=== PATIENT | female | born 1985 | race Caucasian/White ===

== ENCOUNTER 2017-04-13 10:30 | Inpatient (IN) | payer OTHER ==
[~2017-04-13] VITALS: Ht 152.4 cm; Wt 72.6 kg
--- NOTE | ~2017-04-13 | PN ---
Unit #: [id number] #: [id number] Patient: LAURA ZURITA [id number] [facility] [address] [place] [address] [id number] MR#: [id number] NAME: LAURA ZURITA ROOM: P180 Age: 31 Sex: F Admission Date: 04/13/2017 : 1985 Attending Physician: Fredy Gutierrez M.D. Admitting Physician: Fredy Gutierrez M.D. Primary Care Physician: Generic Doctor Not In System [facility] PROGRESS NOTES DATE 04/15/2017 DISCUSSION Laura says that she is much improved today. She has had less detox than she feared and slept a little bit better last night, she has tolerated reintroduction of her bipolar medicine with no adverse side effects. She is alert, fully oriented, and no psychosis and no SI. ASSESSMENT Opiate dependence, bipolar depressed. PLAN Continue current treatment plan, anticipating discharge in the near future. Dictated by... Kathy Conley/yo TD: 04/18/2017 05:29 JOB #: [id number] [facility] PROGRESS NOTES Page 1 of 1 X Fredy Gutierrez MD X PROGRESS NOTE
--- NOTE | ~2017-04-13 | HP ---
Unit #: [id number] #: [id number] Patient: LAURA ZURITA [id number] [place] [address] [id number] MR#: [id number] NAME: LAURA ZURITA ROOM: P180 Age: 31 Sex: F Admission Date: 04/13/2017 : 1985 Attending Physician: Fredy Gutierrez M.D. Admitting Physician: Fredy Gutierrez M.D. Primary Care Physician: Generic Doctor Not In System HISTORY AND PHYSICAL HISTORY OF PRESENT ILLNESS Laura is a 31 year old admitted to [facility] because of her drug use which includes snorting heroin. PAST MEDICAL HISTORY 1. Long history of opioid abuse to include snorting heroin. 2. Obesity. PAST SURGICAL HISTORY 1. Right knee. 2. x1. ALLERGIES No known drug allergies. SOCIAL HISTORY She denies cigarettes and alcohol. Admits to a long history of opioid abuse to include snorting heroin. FAMILY HISTORY Medically noncontributory. REVIEW OF SYSTEMS CONSTITUTIONAL: No fever or chills. HEENT: Denies any sore throat, ear pain or runny nose. CARDIOVASCULAR: Denies chest pain, irregular heart rhythm or palpitations. CHEST: Denies shortness of breath or cough. No hemoptysis. GASTROINTESTINAL: Denies nausea, vomiting, diarrhea or chronic constipation. ENDOCRINE: Denies history of increased thirst or urination. No recent significant weight loss or gain. GENITOURINARY: Denies dysuria, frequency, or hematuria. SKIN: Denies any rashes. HEMATOLOGIC: Denies history of increased bleeding or bruising. MUSCULOSKELETAL: Denies any hot, swollen joints. No generalized muscle pain. NEUROLOGIC: Denies problems with vision or speech. No frequent, severe headaches. No numbness, tingling or weakness in any extremities. Denies loss of bladder or bowel control. CURRENT MEDICATIONS 1. Detox protocol. 2. Lexapro 20 mg daily. Unit #: [id number] #: [id number] Patient: LAURA ZURITA 3. Seroquel 50 mg q.h.s. 4. Lamictal 150 mg q.h.s. PHYSICAL EXAMINATION GENERAL: Alert, well-nourished, in no apparent distress. VITAL SIGNS: Blood pressure 114/78, heart rate 82, respirations 16, temperature 98.6. WEIGHT: 160. HEIGHT: 5 feet 0 inches. SKIN: Warm and dry without rash or lesion. HEENT: Normocephalic. TMs not viewed. Oral and nasal passages clear. Conjunctivae clear. PERRLA. EOMs intact. NECK: Supple without lymphadenopathy or thyromegaly. HEART: Regular rate and rhythm without murmur. LUNGS: Clear. ABDOMEN: Soft, nontender. : Not done. EXTREMITIES: No evidence of cyanosis, clubbing or edema. Moves all without focal deficit. NEUROLOGICAL: Grossly within normal limits. Cranial Nerves: II: Visual holman are intact. III, IV AND : Extraocular movements are intact. Pupils are equal, round and reactive to light. V: Facial sensation is grossly normal. VII: Facial movements and expression are normal. VIII: Auditory acuity grossly intact. IX, X: Uvula is midline. Phonation is normal. XI: Patient shrugs shoulders and turns head normally. XII: Tongue protrudes in the midline. Sensory and Motor Function: Sensory and motor sensation is grossly normal. Motor: moves all extremities well. Coordination: Gait is normal. Deep Tendon Reflexes: Intact. IMPRESSION Psychiatric admission. RECOMMENDATIONS PSYCHIATRIC: Per psychiatrist. MEDICAL: See no contraindication to participate in facility's activities. MEDICAL PROGNOSIS Good. MEDICAL CONDITION Stable. Dictated by... Tracy Brown P.A.-C. for Kathy Rubio/aron TD: 04/13/2017 22:12 JOB #: [id number] Unit #: [id number] #: [id number] Patient: LAURA ZURITA HISTORY AND PHYSICAL Page 1 of 1 X Tracy Brown HISTORY AND PHYSICAL
--- NOTE | ~2017-04-13 | PA ---
Unit #: [id number] #: [id number] Patient: LAURA ZURITA [id number] [facility] [address] [place] [address] [id number] MR#: [id number] NAME: LAURA ZURITA ROOM: [facility] Age: 31 Sex: F Admission Date: 04/13/2017 : 1985 Date of Assessment: Attending Physician: Fredy Gutierrez M.D. Admitting Physician: Fredy Gutierrez M.D. Primary Care Physician: Generic Doctor Not In System PSYCHIATRIC ASSESSMENT DATE OF SERVICE 04/14/2017. INFORMANTS The patient, reliable; [facility], reliable; and [place] office, reliable. CHIEF COMPLAINT Heroin detox. HISTORY OF PRESENT ILLNESS Laura is a 31-year-old woman, who came to the office reporting increasing need to detox from heroin, using about 1 to 2 g daily. She denied suicidal ideation, intent, or plan and was admitted for opioid detox. PAST PSYCHIATRIC HISTORY The patient has had outpatient treatment through [facility] and has had episodes of bipolar disorder per her report. She currently takes lamotrigine, Zoloft, Seroquel, and gabapentin. FAMILY PSYCHIATRIC HISTORY The patient denied a family history of mental illness or substance abuse. SOCIAL HISTORY The patient reported no history of childhood abuse or neglect. She is a single heterosexual woman, who is a high-school graduate with two years of college and is currently employed. She is living with her partner who is supportive. PAST MEDICAL HISTORY No chronic medical problems. MEDICATIONS None except as noted above. ALLERGIES No known medication allergies. SUBSTANCE USE HISTORY As noted, the patient has been using heroin 1 to 2 g daily. MENTAL STATUS EXAMINATION Laura presented as a mildly disheveled woman, who appeared her stated age. She was pleasant and cooperative with the examination. Her speech Unit #: [id number] #: [id number] Patient: LAURA ZURITA was spontaneous and easily understood. Musculoskeletal examination was calm. Her mood was mildly anxious with a congruent affect. She was alert and fully oriented. Her memory and concentration were fair to good. Her thought processes were goal directed with no active psychosis. She reported no suicidal ideation, intent, or plan. Denied homicidal ideation. Insight and judgment were fair. Fund of knowledge and abstraction were fair. ASSETS AND LIABILITIES The patient knows local resources and presents voluntarily for treatment. She has employment and a supportive boyfriend. Liabilities include difficulty with recent relapse. ADMITTING DIAGNOSES AXIS I: Opioid dependence with withdrawal, uncomplicated, F11.23 and bipolar disorder, depressed, F31.4. AXIS II: No diagnosis. AXIS III: Opioid withdrawal syndrome. AXIS IV: AXIS V: PSYCHIATRIC PLAN Laura was admitted and placed on the opioid detox protocol. Her home medications for bipolar disorder will be continued with the exception of Neurontin, which is present on our detox protocol. She will enroll in dual diagnosis groups and activities, and physical examination and laboratory studies will be ordered and reviewed. TREATMENT GOALS Resolution of intoxication, improvement in insight, and improvement in coping skills. DISCHARGE PLANNING Follow up with community mental health and chemical dependency services of her choice. ESTIMATED LENGTH OF STAY 5 days. Dictated by... Fredy Gutierrez M.D. LEELA/beatriz TD: 04/15/2017 14:17 JOB #: [id number] Unit #: [id number] #: [id number] Patient: LAURA ZURITA PSYCHIATRIC ASSESSMENT Page 1 of 1 X Fredy Gutierrez MD X PSYCHIATRIC ASSESSMENT
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
[2017-04-15 11:24] LABS: ALBUMIN SERUM 4.1 g/dL (3.5-5.0); BILIRUBIN,TOTAL 0.9 mg/dL (0.2-2.0); CALCIUM SERUM 9.1 mg/dL (8.4-10.2); CREATININE SERUM 0.8 mg/dL (0.6-1.4); GLOM FILT RATE Estimated 98.3 mL/min (>60); POTASSIUM 3.5 mmol/L (3.5-5.1)
[2017-04-15 12:36] LABS: BASOPHIL% 0.4 % (0-2.5); EOSINOPHIL# 0.1 X10e3 (0-0.7); EOSINOPHIL% 1.3 % (0.0-7.0); HEMATOCRIT 42.1 % (35.0-45.0); HEMOGLOBIN 14.4 gm/dL (12.0-16.0); LYMPHOCYTE# 2.5 X10e3 (1.0-3.5); MEAN CELL VOLUME 87.1 FL (83-96); MEAN CORPUSCULAR HEMOGLOBIN 29.8 PG (28-34); MEAN CORPUSCULAR HGB CONC 34.3 g/dL (30-36); MONOCYTE# 0.7 X10e3 (0-1.0); NEUTROPHIL# 5.6 X10e3 (1.5-7.1); NEUTROPHIL% 62.3 % (40-75); PLATELET COUNT 325 X10e3 (140-420); RED BLOOD COUNT 4.83 X10e (3.90-5.30); RED CELL DISTRIBUTION WIDTH 12.8 % (11.0-15.5)
[2017-04-15 12:46] LABS: DIFF IND NO
== END 2017-04-16 11:45 | DRG 897 ==
LOC: EDBD → P1E 13:11
PROVIDERS: Psychiatry & Neurology Psychiatry
PROC: HZ2ZZZZ Detoxification Services for Substance Abuse Treatment (ICD-10-PCS; principal; 2017-04-13)
DX: F11.23 Opioid dependence with withdrawal (principal); F31.4 Bipolar disorder, current episode depressed, severe, without psychotic features
CPT/HCPCS: 80053; 84702; 84703; 85025; 86592